=== PATIENT | male | born 1980 | race Asian ===

== ENCOUNTER 2017-09-25 21:04 | Emergency (ER) | payer BC ==
[2017-09-25] MEDS ORDERED: EPINEPHrine VIAL 30 MG/30 ML VIAL (21:34)
[2017-09-25] MEDS: EPINEPHrine SYRINGE 1 MG/10 ML SYRINGE IM (21:41)
[2017-09-25] MEDS ORDERED: methylPREDNISolone SOD SUCC PF 125 MG/2 ML VIAL. (21:46)
[2017-09-25] MEDS: methylPREDNISolone SOD SUCC PF 125 MG/2 ML VIAL. IV (21:58)
[2017-09-25] MEDS: diphenhydrAMINE 50 MG/ML VIAL IVP (21:59)
[2017-09-25] MEDS: FAMOTIDINE 20 MG/2 ML VIAL IVP (21:59)
[2017-09-25] MEDS: IV NORMAL SALINE 1000ML BAG 1,000 ML IV (22:07)
== END 2017-09-25 23:48 | disposition home or self-care (01) ==
LOC: ER 23:48
DX: T78.49XA Other allergy, initial encounter (principal); L50.0 Allergic urticaria; R42 Dizziness and giddiness; X58.XXXA Exposure to other specified factors, initial encounter
CPT/HCPCS: 96361; 96372; 96374; 96375; 99285; J0171; J1200; J2930; J7030; S0028